=== PATIENT | female | born 1965 | race Two or more races ===

== ENCOUNTER 2020-11-14 02:17 | Inpatient (IN) | payer OTHER ==
[~2020-11-14] VITALS: Ht 167.6 cm; Wt 78.8 kg
[2020-11-14] MEDS ORDERED: ACETAMINOPHEN 500 MG TABLET ONE (03:24)
[2020-11-14] MEDS ORDERED: ACETAMINOPHEN 500 MG TABLET PO ONE (03:30)
[2020-11-14] MEDS ORDERED: PLEASE ENTER ALLERGIES MC SCH (03:30)
[2020-11-14 03:32] LABS: BASOPHILS % (AUTO) 0 % (0-1); EOSINOPHILS % (AUTO) 0 % (1-7); LYMPHOCYTES % (AUTO) 18 % (22-44); MEAN CORPUSCULAR HEMOGLOBIN 30.3 pg (27.0-34.8); MEAN CORPUSCULAR HGB CONC 34.4 g/dL (32.4-35.8); MEAN PLATELET VOLUME 7.8 fL (7.4-10.4); MONOCYTES % (AUTO) 8 % (2-9); NEUTROPHILS % (AUTO) 74 % (42-75); PLATELET COUNT 232 x10^3/uL (130-400); RED BLOOD COUNT 4.62 x10^6/uL (3.82-5.3); RED CELL DISTRIBUTION WIDTH 13.5 % (9.6-15.2)
[2020-11-14 03:38] LABS: ALBUMIN 2.5 g/dL (3.4-5.0); ANION GAP 10 mmol/L (5-15); CALCIUM 8.3 mg/dL (8.5-10.1); CHLORIDE 109 mmol/L (98-107); CREATININE 0.82 mg/dL (0.55-1.02)
[2020-11-14 03:42] LABS: TROPONIN I < 0.015 ng/mL (0.000-0.045)
[2020-11-14 03:44] LABS: MD NO
[2020-11-14 03:46] LABS: MICROSCOPIC INDICATED
--- NOTE | 2020-11-14 04:26 | NUR ---
PT RESTING IN [facility], ALL MONITORS IN PLACE, PT DOZING INTERMITTENTLY, NO NEEDS AT THIS TIME.
[2020-11-14] MEDS ORDERED: OXYcodone IR 5MG TABLET PO PRN (05:00)
[2020-11-14] MEDS ORDERED: hydrALAzine 20 MG/ML, 1ML IVPush PRN (05:00)
[2020-11-14] MEDS ORDERED: morphine SULFATE 10 MG/ML, 1ML IVPush PRN (05:00)
[2020-11-14] MEDS ORDERED: ONDANSETRON ODT 4 MG PO PRN (05:00)
[2020-11-14] MEDS ORDERED: ONDANSETRON 2MG/ML, 2ML IVPush PRN (05:00)
[2020-11-14] MEDS ORDERED: POLYETHYLENE GLYCOL 17 GM PACKET PO PRN (05:00)
[2020-11-14] MEDS ORDERED: AZITHROMYCIN 500 MG in SODIUM CHLORIDE 0.9% 250 ML IV ONE (05:00)
[2020-11-14] MEDS ORDERED: BISACODYL 10 MG SUPP PR PRN (05:00)
[2020-11-14] MEDS ORDERED: SODIUM CHLORIDE 0.9% 1,000ML IVBOLUS ONE (05:00)
[2020-11-14] MEDS ORDERED: PROMETHAZINE 25 MG/ML, 1ML IM PRN (05:00)
[2020-11-14] MEDS ORDERED: CEFTRIAXONE PMX 1GM/50ML 50 ML IV ONE (05:00)
[2020-11-14] MEDS ORDERED: DOCUSATE 100 MG CAPSULE PO PRN (05:00)
--- NOTE | 2020-11-14 05:01 | NUR ---
PT UNABLE TO RECALL MEDICATION DOSAGES, PT GOES TO [facility] FOR MEDICATIONS. TO CALL IN MORNING FOR MED LIST. HOSP AWARE
--- NOTE | 2020-11-14 05:11 | NUR ---
SPOKE WITH SON, CAN [phone])- OK TO GIVE INFORMATION.
[2020-11-14] MEDS ORDERED: CEFTRIAXONE PMX 1GM/50ML 50 ML ONE (05:22)
[2020-11-14] MEDS ORDERED: SODIUM CHLORIDE 0.9% 1,000 ML IV SCH ×2 (05:30→15:00)
--- NOTE | 2020-11-14 05:51 | NUR ---
REPORT GIVEN TO FRANCISCO GOYAL
[2020-11-14 06:24] VITALS: BP 99/52
[2020-11-14] MEDS: INSULIN LISPRO 100 UNITS/ML, PEN SQ-INSULIN SCH ×4 (07:00→20:56)
[2020-11-14] MEDS: CHOLECALCIFEROL 5,000u TAB PO SCH (08:26)
[2020-11-14] MEDS: DEXAMETHASONE 4 MG/ML, 1ML IVPush SCH (08:26)
[2020-11-14] MEDS: ASCORBIC ACID 500 MG TABLET PO SCH ×2 (08:26→16:05)
[2020-11-14] MEDS: ENOXAPARIN 40 MG/0.4 ML SQ SCH ×2 (08:26→20:54)
[2020-11-14] MEDS: ZINC SULFATE 220 MG CAPSULE PO SCH (08:26)
[2020-11-14] MEDS ORDERED: REMDESIVIR 200 MG in SODIUM CHLORIDE 0.9% 250 ML IVPB ONE (09:30)
[2020-11-14 09:53] LABS: C-REACTIVE PROTEIN, QUANT 9.1 mg/dL (0.02-0.49)
[2020-11-14] MEDS ORDERED: GLIM4TAB8 PO (11:40)
[2020-11-14] MEDS ORDERED: ASPI-515 PO (11:40)
[2020-11-14] MEDS ORDERED: BENA1TAB10 PO (11:40)
[2020-11-14] MEDS ORDERED: FAMO-79 PO (11:40)
[2020-11-14] MEDS ORDERED: EMPA25TA PO (11:40)
[2020-11-14] MEDS ORDERED: FAMO20TA7 PO (11:40)
[2020-11-14] MEDS ORDERED: ALBU18HF INH (11:40)
[2020-11-14] MEDS ORDERED: ATOR20TA86 PO (11:40)
[2020-11-14] MEDS ORDERED: METF500T17 PO (11:40)
[2020-11-14 11:59] LABS: ALANINE AMINOTRANSFERASE 45 U/L (12-78); ALBUMIN 2.1 g/dL (3.4-5.0)
[2020-11-14 12:02] LABS: ALKALINE PHOSPHATASE 56 U/L (45-117); BILIRUBIN,TOTAL 0.5 mg/dL (0.2-1.0); TOTAL PROTEIN 6.1 g/dL (6.4-8.2)
[2020-11-14 12:11] VITALS: BP 116/73
[2020-11-14 12:17] LABS: BILIRUBIN, DIRECT < 0.1 mg/dL (0.1-0.2); BILIRUBIN,INDIRECT 0.4 mg/dL (0.0-2.0)
[2020-11-14 18:33] VITALS: BP 122/68
[2020-11-15 00:08] VITALS: BP 102/63
[2020-11-15] MEDS: CEFTRIAXONE PMX 1GM/50ML 50 ML IV SCH (03:19)
[2020-11-15 05:48] LABS: BASOPHILS % (AUTO) 0 % (0-1); EOSINOPHILS % (AUTO) 0 % (1-7); LYMPHOCYTES % (AUTO) 23 % (22-44); MEAN CORPUSCULAR HEMOGLOBIN 30.4 pg (27.0-34.8); MEAN CORPUSCULAR HGB CONC 34.7 g/dL (32.4-35.8); MEAN PLATELET VOLUME 7.6 fL (7.4-10.4); MONOCYTES % (AUTO) 8 % (2-9); NEUTROPHILS % (AUTO) 69 % (42-75); PLATELET COUNT 233 x10^3/uL (130-400); RED BLOOD COUNT 4.31 x10^6/uL (3.82-5.3); RED CELL DISTRIBUTION WIDTH 13.4 % (9.6-15.2)
[2020-11-15 06:06] LABS: CHLORIDE 114 mmol/L (98-107)
[2020-11-15 06:18] LABS: ALANINE AMINOTRANSFERASE 56 U/L (12-78); ALKALINE PHOSPHATASE 59 U/L (45-117); ANION GAP 11 mmol/L (5-15); BILIRUBIN,TOTAL 0.4 mg/dL (0.2-1.0); CALCIUM 8.3 mg/dL (8.5-10.1); CHOL/HDL RATIO 2.7; CHOLESTEROL, TOTAL 89 mg/dL (140-239); CREATININE 0.66 mg/dL (0.55-1.02); HDL CHOL % 37 % (28-40); HDL CHOLESTEROL (DIRECT) 33 mg/dL (40-60); LDL CHOLESTEROL,CALCULATED 40 mg/dL (54-169); LDL/HDL RATIO 1.2 (0.5-3.0); TOTAL PROTEIN 6.2 g/dL (6.4-8.2); TRIGLYCERIDES 81 mg/dL (50-200); VLDL CHOLESTEROL 16 mg/dL (0-25)
[2020-11-15 06:35] LABS: MD NO
[2020-11-15 07:08] VITALS: BP 118/67
[2020-11-15] MEDS: AZITHROMYCIN 500 MG in SODIUM CHLORIDE 0.9% 250 ML IV SCH (07:49)
[2020-11-15] MEDS: CHOLECALCIFEROL 5,000u TAB PO SCH (07:50)
[2020-11-15] MEDS: ENOXAPARIN 40 MG/0.4 ML SQ SCH ×2 (07:50→21:00)
[2020-11-15] MEDS: ASCORBIC ACID 500 MG TABLET PO SCH ×2 (07:50→17:04)
[2020-11-15] MEDS: ZINC SULFATE 220 MG CAPSULE PO SCH (07:50)
[2020-11-15] MEDS: DEXAMETHASONE 4 MG/ML, 1ML IVPush SCH (07:51)
[2020-11-15] MEDS: INSULIN LISPRO 100 UNITS/ML, PEN SQ-INSULIN SCH ×4 (07:51→21:01)
[2020-11-15] MEDS ORDERED: POTASSIUM CHLORIDE 20 MEQ TAB.ER.PRT PO ONE (08:30)
[2020-11-15] MEDS: REMDESIVIR 100 MG in SODIUM CHLORIDE 0.9% 250 ML IVPB SCH (09:58)
[2020-11-15 13:07] VITALS: BP 112/72
[2020-11-15 19:22] VITALS: BP 128/65
[2020-11-16 00:51] VITALS: BP 112/60
[2020-11-16] MEDS: CEFTRIAXONE PMX 1GM/50ML 50 ML IV SCH (02:58)
[2020-11-16 06:06] LABS: BASOPHILS % (AUTO) 0 % (0-1); EOSINOPHILS % (AUTO) 0 % (1-7); LYMPHOCYTES % (AUTO) 19 % (22-44); MEAN CORPUSCULAR HEMOGLOBIN 30.3 pg (27.0-34.8); MEAN CORPUSCULAR HGB CONC 34.5 g/dL (32.4-35.8); MONOCYTES % (AUTO) 6 % (2-9); NEUTROPHILS % (AUTO) 76 % (42-75); PLATELET COUNT 300 x10^3/uL (130-400); RED BLOOD COUNT 4.32 x10^6/uL (3.82-5.3); RED CELL DISTRIBUTION WIDTH 13.5 % (9.6-15.2)
[2020-11-16 06:17] LABS: ANION GAP 8 mmol/L (5-15); CHLORIDE 113 mmol/L (98-107)
[2020-11-16 06:19] LABS: MD NO
[2020-11-16 06:21] LABS: ALANINE AMINOTRANSFERASE 45 U/L (12-78); ALKALINE PHOSPHATASE 57 U/L (45-117); BILIRUBIN,TOTAL 0.4 mg/dL (0.2-1.0); CALCIUM 8.5 mg/dL (8.5-10.1); CREATININE 0.64 mg/dL (0.55-1.02); TOTAL PROTEIN 5.8 g/dL (6.4-8.2)
[2020-11-16] MEDS: DEXAMETHASONE 4 MG/ML, 1ML IVPush SCH (07:59)
[2020-11-16] MEDS: INSULIN LISPRO 100 UNITS/ML, PEN SQ-INSULIN SCH ×4 (07:59→21:18)
[2020-11-16] MEDS: ZINC SULFATE 220 MG CAPSULE PO SCH (07:59)
[2020-11-16] MEDS: ASCORBIC ACID 500 MG TABLET PO SCH ×2 (07:59→16:14)
[2020-11-16] MEDS: CHOLECALCIFEROL 5,000u TAB PO SCH (07:59)
[2020-11-16] MEDS: ENOXAPARIN 40 MG/0.4 ML SQ SCH ×2 (08:00→21:00)
[2020-11-16] MEDS: AZITHROMYCIN 500 MG in SODIUM CHLORIDE 0.9% 250 ML IV SCH (08:11)
[2020-11-16 09:26] VITALS: BP 96/64
[2020-11-16] MEDS: REMDESIVIR 100 MG in SODIUM CHLORIDE 0.9% 250 ML IVPB SCH (10:30)
[2020-11-16 13:41] VITALS: BP 122/74
[2020-11-16 19:02] VITALS: BP 111/76
[2020-11-16] MEDS ORDERED: INSULIN GLARGINE 100 UNITS/ML, PEN SQ-INSULIN SCH (21:00)
[2020-11-17 00:44] VITALS: BP 106/73
[2020-11-17] MEDS: CEFTRIAXONE PMX 1GM/50ML 50 ML IV SCH (02:21)
[2020-11-17 06:20] LABS: CHLORIDE 110 mmol/L (98-107)
[2020-11-17 06:32] LABS: ALANINE AMINOTRANSFERASE 44 U/L (12-78); ALBUMIN 2.1 g/dL (3.4-5.0); ALKALINE PHOSPHATASE 55 U/L (45-117); ANION GAP 6 mmol/L (5-15); BILIRUBIN,TOTAL 0.5 mg/dL (0.2-1.0); CALCIUM 8.4 mg/dL (8.5-10.1); CREATININE 0.58 mg/dL (0.55-1.02); TOTAL PROTEIN 5.8 g/dL (6.4-8.2)
[2020-11-17 08:00] VITALS: BP 103/67
[2020-11-17] MEDS: ASCORBIC ACID 500 MG TABLET PO SCH ×2 (08:02→15:49)
[2020-11-17] MEDS: INSULIN LISPRO 100 UNITS/ML, PEN SQ-INSULIN SCH ×4 (08:02→20:33)
[2020-11-17] MEDS: AZITHROMYCIN 500 MG in SODIUM CHLORIDE 0.9% 250 ML IV SCH (08:02)
[2020-11-17] MEDS: ZINC SULFATE 220 MG CAPSULE PO SCH (08:03)
[2020-11-17] MEDS: CHOLECALCIFEROL 5,000u TAB PO SCH (08:03)
[2020-11-17] MEDS: DEXAMETHASONE 4 MG/ML, 1ML IVPush SCH (08:03)
[2020-11-17] MEDS: ENOXAPARIN 40 MG/0.4 ML SQ SCH ×2 (08:04→20:31)
[2020-11-17 08:45] VITALS: BP 100/67
[2020-11-17] MEDS: REMDESIVIR 100 MG in SODIUM CHLORIDE 0.9% 250 ML IVPB SCH (10:28)
[2020-11-17 12:51] LABS: TROPONIN I < 0.015 ng/mL (0.000-0.045)
[2020-11-17 13:33] VITALS: BP 116/74
[2020-11-17] MEDS ORDERED: FUROSEMIDE 40 MG/4 ML IV ONE (15:00)
[2020-11-17] MEDS ORDERED: POTASSIUM CHLORIDE 20 MEQ TAB.ER.PRT PO ONE (15:00)
[2020-11-17] MEDS ORDERED: INSULIN LISPRO 100 UNITS/ML, PEN SQ-INSULIN ONE (16:30)
[2020-11-17 19:01] VITALS: BP 126/72
[2020-11-17] MEDS: GUAIFENESIN ER 600 MG TABLET PO SCH (20:30)
[2020-11-17] MEDS: INSULIN GLARGINE 100 UNITS/ML, PEN SQ-INSULIN SCH (20:35)
[2020-11-18 01:49] VITALS: BP 104/63
[2020-11-18] MEDS: CEFTRIAXONE PMX 1GM/50ML 50 ML IV SCH (02:49)
[2020-11-18 05:06] LABS: BASOPHILS % (AUTO) 0 % (0-1); EOSINOPHILS % (AUTO) 0 % (1-7); LYMPHOCYTES % (AUTO) 21 % (22-44); MEAN CORPUSCULAR HEMOGLOBIN 30.2 pg (27.0-34.8); MEAN CORPUSCULAR HGB CONC 34.8 g/dL (32.4-35.8); MEAN PLATELET VOLUME 7.6 fL (7.4-10.4); MONOCYTES % (AUTO) 6 % (2-9); NEUTROPHILS % (AUTO) 73 % (42-75); PLATELET COUNT 413 x10^3/uL (130-400); RED BLOOD COUNT 4.64 x10^6/uL (3.82-5.3)
[2020-11-18 05:10] LABS: ALANINE AMINOTRANSFERASE 52 U/L (12-78); ALBUMIN 2.2 g/dL (3.4-5.0); ANION GAP 5 mmol/L (5-15); CALCIUM 8.4 mg/dL (8.5-10.1); CHLORIDE 109 mmol/L (98-107); CREATININE 0.68 mg/dL (0.55-1.02)
[2020-11-18 05:12] LABS: ALKALINE PHOSPHATASE 56 U/L (45-117); BILIRUBIN,TOTAL 0.4 mg/dL (0.2-1.0); TOTAL PROTEIN 6.1 g/dL (6.4-8.2)
[2020-11-18 05:22] LABS: MD NO
[2020-11-18] MEDS: ZINC SULFATE 220 MG CAPSULE PO SCH (08:28)
[2020-11-18] MEDS: ASCORBIC ACID 500 MG TABLET PO SCH ×2 (08:28→15:58)
[2020-11-18] MEDS: CHOLECALCIFEROL 5,000u TAB PO SCH (08:28)
[2020-11-18] MEDS: GUAIFENESIN ER 600 MG TABLET PO SCH ×2 (08:28→21:28)
[2020-11-18] MEDS: POTASSIUM CHLORIDE 20 MEQ TAB.ER.PRT PO SCH (08:28)
[2020-11-18] MEDS: ACETAMINOPHEN 325 MG TABLET PO PRN (08:28)
[2020-11-18] MEDS: AZITHROMYCIN 500 MG in SODIUM CHLORIDE 0.9% 250 ML IV SCH (08:29)
[2020-11-18] MEDS: FUROSEMIDE 40 MG/4 ML IV SCH (08:30)
[2020-11-18] MEDS: DEXAMETHASONE 4 MG/ML, 1ML IVPush SCH (08:30)
[2020-11-18] MEDS: INSULIN LISPRO 100 UNITS/ML, PEN SQ-INSULIN SCH ×4 (08:31→21:38)
[2020-11-18] MEDS: INSULIN GLARGINE 100 UNITS/ML, PEN SQ-INSULIN SCH (08:32)
[2020-11-18] MEDS: ENOXAPARIN 40 MG/0.4 ML SQ SCH ×2 (08:33→21:28)
[2020-11-18 08:54] VITALS: BP 100/45
[2020-11-18] MEDS: REMDESIVIR 100 MG in SODIUM CHLORIDE 0.9% 250 ML IVPB SCH (10:30)
[2020-11-18 12:16] VITALS: BP 93/52
[2020-11-18] MEDS ORDERED: INSULIN LISPRO 100 UNITS/ML, PEN SQ-INSULIN SCH (16:00)
[2020-11-18 20:45] VITALS: BP 107/70
[2020-11-18] MEDS ORDERED: INSULIN GLARGINE 100 UNITS/ML, PEN SQ-INSULIN SCH (21:00)
[2020-11-18] MEDS ORDERED: INSULIN LISPRO 100 UNITS/ML, PEN SQ-INSULIN ONE (21:45)
[2020-11-19] MEDS: ACETAMINOPHEN 325 MG TABLET PO PRN (00:35)
[2020-11-19 00:40] VITALS: BP 99/65
[2020-11-19] MEDS: CEFTRIAXONE PMX 1GM/50ML 50 ML IV SCH (03:01)
[2020-11-19 06:36] VITALS: BP 98/63
[2020-11-19] MEDS: INSULIN LISPRO 100 UNITS/ML, PEN SQ-INSULIN SCH ×7 (07:00→20:33)
[2020-11-19] MEDS ORDERED: INSULIN LISPRO 100 UNITS/ML, PEN SQ-INSULIN SCH (07:00)
[2020-11-19 08:14] LABS: ANION GAP 7 mmol/L (5-15); CALCIUM 8.8 mg/dL (8.5-10.1); CHLORIDE 108 mmol/L (98-107); CREATININE 0.66 mg/dL (0.55-1.02)
[2020-11-19] MEDS: CHOLECALCIFEROL 5,000u TAB PO SCH (08:56)
[2020-11-19] MEDS: AZITHROMYCIN 500 MG in SODIUM CHLORIDE 0.9% 250 ML IV SCH (08:56)
[2020-11-19] MEDS: ZINC SULFATE 220 MG CAPSULE PO SCH (08:56)
[2020-11-19] MEDS: ASCORBIC ACID 500 MG TABLET PO SCH ×2 (08:56→16:32)
[2020-11-19] MEDS: DEXAMETHASONE 4 MG/ML, 1ML IVPush SCH (08:56)
[2020-11-19] MEDS: FUROSEMIDE 40 MG/4 ML IV SCH (08:56)
[2020-11-19] MEDS: POTASSIUM CHLORIDE 20 MEQ TAB.ER.PRT PO SCH (08:57)
[2020-11-19] MEDS: ENOXAPARIN 40 MG/0.4 ML SQ SCH ×2 (08:57→20:31)
[2020-11-19] MEDS: GUAIFENESIN ER 600 MG TABLET PO SCH ×2 (08:57→20:31)
[2020-11-19] MEDS ORDERED: INSULIN GLARGINE 100 UNITS/ML, PEN SQ-INSULIN SCH ×3 (09:00→21:00)
[2020-11-19 12:06] VITALS: BP 93/61
[2020-11-19 18:45] VITALS: BP 102/67
[2020-11-20] MEDS: ACETAMINOPHEN 325 MG TABLET PO PRN (00:10)
[2020-11-20 00:19] VITALS: BP 95/65
[2020-11-20] MEDS: CEFTRIAXONE PMX 1GM/50ML 50 ML IV SCH (02:48)
[2020-11-20 06:41] VITALS: BP 105/68
[2020-11-20] MEDS: INSULIN LISPRO 100 UNITS/ML, PEN SQ-INSULIN SCH ×6 (07:00→21:01)
[2020-11-20] MEDS: FUROSEMIDE 40 MG/4 ML IV SCH (08:09)
[2020-11-20] MEDS: ASCORBIC ACID 500 MG TABLET PO SCH ×2 (08:09→17:07)
[2020-11-20] MEDS: GUAIFENESIN ER 600 MG TABLET PO SCH ×2 (08:09→20:52)
[2020-11-20] MEDS: AZITHROMYCIN 500 MG in SODIUM CHLORIDE 0.9% 250 ML IV SCH (08:09)
[2020-11-20] MEDS: DEXAMETHASONE 4 MG/ML, 1ML IVPush SCH (08:09)
[2020-11-20] MEDS: CHOLECALCIFEROL 5,000u TAB PO SCH (08:09)
[2020-11-20] MEDS: ZINC SULFATE 220 MG CAPSULE PO SCH (08:10)
[2020-11-20] MEDS: POTASSIUM CHLORIDE 20 MEQ TAB.ER.PRT PO SCH (08:10)
[2020-11-20] MEDS: ENOXAPARIN 40 MG/0.4 ML SQ SCH ×2 (08:12→20:52)
[2020-11-20] MEDS: INSULIN GLARGINE 100 UNITS/ML, PEN SQ-INSULIN SCH ×2 (08:12→21:02)
[2020-11-20] MEDS ORDERED: INSULIN LISPRO 100 UNIT/ML, 3ML VIAL SQ ONE ×2 (10:00→12:30)
[2020-11-20 12:02] VITALS: BP 95/61
[2020-11-20] MEDS ORDERED: INSULIN LISPRO 100 UNITS/ML, PEN SQ-INSULIN ONE (13:00)
[2020-11-20] MEDS ORDERED: INSULIN LISPRO 100 UNITS/ML, PEN SQ-INSULIN SCH (16:00)
[2020-11-20 18:25] VITALS: BP 105/69
[2020-11-21 00:30] VITALS: BP 96/65
[2020-11-21] MEDS: CEFTRIAXONE PMX 1GM/50ML 50 ML IV SCH (02:32)
[2020-11-21 06:57] VITALS: BP 90/59
[2020-11-21 07:22] LABS: BASOPHILS % (AUTO) 0 % (0-1); EOSINOPHILS % (AUTO) 0 % (1-7); LYMPHOCYTES % (AUTO) 19 % (22-44); MEAN CORPUSCULAR HEMOGLOBIN 30.4 pg (27.0-34.8); MEAN CORPUSCULAR HGB CONC 34.1 g/dL (32.4-35.8); MEAN PLATELET VOLUME 7.3 fL (7.4-10.4); MONOCYTES % (AUTO) 7 % (2-9); NEUTROPHILS % (AUTO) 74 % (42-75); PLATELET COUNT 475 x10^3/uL (130-400); RED BLOOD COUNT 5.01 x10^6/uL (3.82-5.3); RED CELL DISTRIBUTION WIDTH 13.5 % (9.6-15.2)
[2020-11-21 07:27] LABS: ANION GAP 6 mmol/L (5-15); CALCIUM 8.8 mg/dL (8.5-10.1); CHLORIDE 106 mmol/L (98-107); CREATININE 0.78 mg/dL (0.55-1.02)
[2020-11-21 07:29] LABS: MD NO
[2020-11-21] MEDS: AZITHROMYCIN 500 MG in SODIUM CHLORIDE 0.9% 250 ML IV SCH (08:34)
[2020-11-21] MEDS: FUROSEMIDE 40 MG/4 ML IV SCH (08:34)
[2020-11-21] MEDS: CHOLECALCIFEROL 5,000u TAB PO SCH (08:35)
[2020-11-21] MEDS: DEXAMETHASONE 4 MG/ML, 1ML IVPush SCH (08:35)
[2020-11-21] MEDS: ZINC SULFATE 220 MG CAPSULE PO SCH (08:35)
[2020-11-21] MEDS: ASCORBIC ACID 500 MG TABLET PO SCH ×2 (08:35→17:08)
[2020-11-21] MEDS: GUAIFENESIN ER 600 MG TABLET PO SCH ×2 (08:35→21:39)
[2020-11-21] MEDS: POTASSIUM CHLORIDE 20 MEQ TAB.ER.PRT PO SCH (08:35)
[2020-11-21] MEDS: ENOXAPARIN 40 MG/0.4 ML SQ SCH ×2 (08:36→21:40)
[2020-11-21] MEDS: INSULIN LISPRO 100 UNITS/ML, PEN SQ-INSULIN SCH ×7 (08:44→21:42)
[2020-11-21] MEDS ORDERED: INSULIN GLARGINE 100 UNITS/ML, PEN SQ-INSULIN SCH ×2 (09:00→21:00)
[2020-11-21 10:40] VITALS: BP 110/74
[2020-11-21 11:39] VITALS: BP 81/67
[2020-11-21 12:00] VITALS: BP 95/68
[2020-11-21] MEDS ORDERED: INSULIN LISPRO 100 UNIT/ML, 3ML VIAL SQ-INSULIN ONE (12:00)
[2020-11-21 18:52] VITALS: BP 99/63
[2020-11-21] MEDS: TEMAZEPAM 15 MG CAPSULE PO PRN (22:15)
[2020-11-22 01:06] VITALS: BP 106/67
[2020-11-22] MEDS: INSULIN LISPRO 100 UNITS/ML, PEN SQ-INSULIN SCH ×7 (07:56→21:58)
[2020-11-22 08:47] VITALS: BP 99/62
[2020-11-22] MEDS ORDERED: INSULIN GLARGINE 100 UNITS/ML, PEN SQ-INSULIN SCH ×2 (09:00)
[2020-11-22] MEDS: DEXAMETHASONE 4 MG/ML, 1ML IVPush SCH (09:06)
[2020-11-22] MEDS: ASCORBIC ACID 500 MG TABLET PO SCH ×2 (09:06→16:00)
[2020-11-22] MEDS: GUAIFENESIN ER 600 MG TABLET PO SCH ×2 (09:06→21:55)
[2020-11-22] MEDS: CHOLECALCIFEROL 5,000u TAB PO SCH (09:07)
[2020-11-22] MEDS: ZINC SULFATE 220 MG CAPSULE PO SCH (09:07)
[2020-11-22] MEDS: ENOXAPARIN 40 MG/0.4 ML SQ SCH (09:09)
[2020-11-22 12:50] VITALS: BP 108/61
[2020-11-22 18:40] VITALS: BP 98/60
[2020-11-22] MEDS: INSULIN GLARGINE 100 UNITS/ML, PEN SQ-INSULIN SCH (21:57)
[2020-11-22] MEDS: TEMAZEPAM 15 MG CAPSULE PO PRN (22:02)
[2020-11-23 01:54] VITALS: BP 94/59
[2020-11-23 07:26] LABS: BASOPHILS % (AUTO) 1 % (0-1); EOSINOPHILS % (AUTO) 0 % (1-7); LYMPHOCYTES % (AUTO) 19 % (22-44); MEAN CORPUSCULAR HEMOGLOBIN 30.3 pg (27.0-34.8); MEAN CORPUSCULAR HGB CONC 33.6 g/dL (32.4-35.8); MEAN PLATELET VOLUME 7.3 fL (7.4-10.4); MONOCYTES % (AUTO) 8 % (2-9); NEUTROPHILS % (AUTO) 73 % (42-75); PLATELET COUNT 412 x10^3/uL (130-400); RED BLOOD COUNT 4.56 x10^6/uL (3.82-5.3); RED CELL DISTRIBUTION WIDTH 13.4 % (9.6-15.2)
[2020-11-23 07:30] LABS: ANION GAP 4 mmol/L (5-15); CALCIUM 8.2 mg/dL (8.5-10.1); CHLORIDE 109 mmol/L (98-107)
[2020-11-23 07:38] LABS: MD NO
[2020-11-23] MEDS: INSULIN LISPRO 100 UNITS/ML, PEN SQ-INSULIN SCH ×6 (07:46→16:12)
[2020-11-23 08:21] VITALS: BP 102/62
[2020-11-23] MEDS ORDERED: ENOXAPARIN 40 MG/0.4 ML SQ SCH (09:00)
[2020-11-23] MEDS: CHOLECALCIFEROL 5,000u TAB PO SCH (09:40)
[2020-11-23] MEDS: ZINC SULFATE 220 MG CAPSULE PO SCH (09:40)
[2020-11-23] MEDS: ASCORBIC ACID 500 MG TABLET PO SCH ×2 (09:40→16:13)
[2020-11-23] MEDS: DEXAMETHASONE 4 MG/ML, 1ML IVPush SCH (09:40)
[2020-11-23] MEDS: GUAIFENESIN ER 600 MG TABLET PO SCH (09:40)
[2020-11-23] MEDS: INSULIN GLARGINE 100 UNITS/ML, PEN SQ-INSULIN SCH (09:44)
[2020-11-23 14:30] VITALS: BP 90/58
[2020-11-23] MEDS ORDERED: ALBU18HF INH (15:49)
== END 2020-11-23 17:14 | disposition home or self-care (01) | DRG 177 ==
LOC: ED 05:26 → EDIP 05:29 → 4WST 06:07
PROVIDERS: ADMIT Internal Medicine; ATTEND Hospitalist
PROC: XW033E5 Introduction of Remdesivir Anti-infective into Peripheral Vein, Percutaneous Approach, New Technology Group 5 (ICD-10-PCS; 2020-11-14)
PROC: 5A0945A Assistance with Respiratory Ventilation, 24-96 Consecutive Hours, High Flow/Velocity Cannula (ICD-10-PCS; principal; 2020-11-17)
PROC: 5A0945A Assistance with Respiratory Ventilation, 24-96 Consecutive Hours, High Flow/Velocity Cannula (ICD-10-PCS; 2020-11-19)
PROC: 5A0935A Assistance with Respiratory Ventilation, Less than 24 Consecutive Hours, High Flow/Velocity Cannula (ICD-10-PCS; 2020-11-22)
DX: U07.1 COVID-19 (principal); J12.82 Pneumonia due to coronavirus disease 2019; J96.01 Acute respiratory failure with hypoxia; D68.69 Other thrombophilia; T38.0X5A Adverse effect of glucocorticoids and synthetic analogues, initial encounter; E78.5 Hyperlipidemia, unspecified; D72.819 Decreased white blood cell count, unspecified; I95.89 Other hypotension; E11.9 Type 2 diabetes mellitus without complications; Z79.4 Long term (current) use of insulin; Z79.899 Other long term (current) drug therapy; Y92.89 Other specified places as the place of occurrence of the external cause
CPT/HCPCS: 36415; 71045; 80048; 80053; 80061; 80076; 81001; 82040; 82947; 82962; 83036; 83615; 83735; 83880; 84145; 84443; 84484; 85025; 85379; 86140; 87040; 93005; 96365; 96368; 99285; G0378; J0456; J0696; J1100; J1650; J1940; Q0162; J1815; J7030; J7050